=== PATIENT | male | born 1945 | race African-American/Black ===

== ENCOUNTER 2025-04-03 12:23 | Inpatient (IN) | payer OTHER ==
[~2025-04-03] VITALS: Ht 180.3 cm; Wt 65.4 kg
[2025-04-03] MEDS: ACETAMINOPHEN 1000MG/100ML 100 ML IV ONE (13:36)
[2025-04-03] MEDS: SODIUM CHLORIDE 0.9% (SEPSIS BOLUS) IV ONE (13:37)
[2025-04-03] MEDS: PIPERACILLIN/TAZO 3.375G/50ML 50 ML IV ONE (13:58)
[2025-04-03 14:04] LABS: HEMATOCRIT. 36.1 % (42.0-52.0); HEMOGLOBIN. 12.2 g/dL (14.0-18.0); MEAN PLATELET VOLUME 8.1 fl (7.4-10.4); PLATELET 299 x1000/uL (130-400); RED BLOOD CELL COUNT 3.93 mill/uL (4.7-6.1); RED CELL DISTRIBUTION WIDTH 12.8 % (11.6-14.6)
[2025-04-03] MEDS: VANCOMYCIN 1G PREMIX 200 ML IV ONE (14:12)
[2025-04-03 14:18] LABS: INR 1.1
[2025-04-03 14:21] LABS: CREATININE 0.7 mg/dL (0.6-1.3); UREA NITROGEN BLOOD 32 mg/dL (9-23)
[2025-04-03 14:23] LABS: ASPARTATE AMINOTRANSFERASE 22 IU/L (<34); BILIRUBIN DIRECT 0.2 mg/dL (<=3.0); BILIRUBIN TOTAL 0.5 mg/dL (0.1-1.0); PROTEIN TOTAL 7.3 g/dL (6.0-8.3)
[2025-04-03 14:47] LABS: BAND% 12.0 % (1.0-6.0); LYMPHOCYTES % MANUAL 4.0 % (20.0-50.0); MONOCYTES % MANUAL 5.0 % (2.0-8.0); NEUTROPHILS % MANUAL 79.0 % (45.0-75.0); PLATELET ESTIMATE NORMAL
[2025-04-03 18:30] VITALS: BP 111/75; PULSE 108; RESP 20; TEMP 36.9; O2SAT 99
[2025-04-03] MEDS ORDERED: ACETAMINOPHEN 325MG TABLET PO PRN ×2 (19:15)
[2025-04-03] MEDS ORDERED: ONDANSETRON HCL 4MG/2ML INJ IV PRN (19:15)
[2025-04-03] MEDS ORDERED: PIPERACILLIN/TAZOBACTAM 3.375 G in DEXTROSE 5% WATER 50 ML IV SCH (19:15)
[2025-04-03] MEDS ORDERED: GUAIFENESIN 200MG/10ML SUGAR FREE UDC PO PRN (19:15)
[2025-04-03] MEDS ORDERED: CLONIDINE 0.1MG TABLET PO PRN (19:15)
[2025-04-03] MEDS ORDERED: MAGNESIUM/ALUMINUM HYDROXIDE/SIMETHICONE 30ML UDC PO PRN (19:15)
[2025-04-03] MEDS ORDERED: DOCUSATE SODIUM 100MG CAPSULE PO PRN (19:15)
[2025-04-03] MEDS ORDERED: IPRATROPIUM/ALBUTEROL 0.5-3(2.5)MG/3ML NEB HHN PRN (19:15)
[2025-04-03 20:00] VITALS: BP 112/73; PULSE 106; RESP 19; TEMP 35.6; O2SAT 98
[2025-04-03 20:13] LABS: PHOSPHORUS 2.5 mg/dL (2.5-4.9)
[2025-04-03] MEDS: ENOXAPARIN 40MG/0.4ML SYR SUBCUT SCH (21:03)
[2025-04-03] MEDS: VANCOMYCIN 500MG/100ML IV SCH (22:26)
[2025-04-03] MEDS: PIPERACILLIN/TAZO 3.375G/50ML IV SCH (22:26)
[2025-04-03] MEDS: MVI, ADULT NO.1 10 ML, FOLIC ACID 1 MG, THIAMINE HCL 100 MG in SODIUM CHLORIDE 0.9% 1,0... IV ONE (22:27)
[2025-04-03] MEDS: METOPROLOL TARTRATE 25MG TABLET PO SCH (22:28)
[2025-04-03 23:38] VITALS: BP 111/75; PULSE 108; RESP 20; TEMP 36.696
[2025-04-04] VITALS: BP 114/69; PULSE 63; RESP 19; TEMP 37.1; O2SAT 96
[2025-04-04 00:55] LABS: TROPONIN I HIGH SENSITIVITY 85 ng/L (3.0-53)
[2025-04-04 04:00] VITALS: BP 121/62; PULSE 104; RESP 19; TEMP 37.1; O2SAT 98
[2025-04-04 08:09] LABS: HEMATOCRIT. 35.3 % (42.0-52.0); HEMOGLOBIN. 11.7 g/dL (14.0-18.0); MEAN PLATELET VOLUME 8.4 fl (7.4-10.4); PLATELET 292 x1000/uL (130-400); RED BLOOD CELL COUNT 3.85 mill/uL (4.7-6.1); RED CELL DISTRIBUTION WIDTH 13.0 % (11.6-14.6)
[2025-04-04 08:22] LABS: LDL CHOLESTEROL 65.0 mg/dL (5-100); TRIGLYCERIDE 109.0 mg/dL (0-150)
[2025-04-04 08:29] LABS: TROPONIN I HIGH SENSITIVITY 108 ng/L (3.0-53)
[2025-04-04 08:47] VITALS: BP 104/55; PULSE 116; RESP 18; TEMP 36.6; O2SAT 98
[2025-04-04 09:04] LABS: HEPATITIS C AB NON REACTIVE (Neg) (Negative)
[2025-04-04] MEDS: VANCOMYCIN 750MG PMX (XELLIA) 150 ML IV SCH (09:13)
[2025-04-04] MEDS: LORAZEPAM 1MG TABLET PO PRN (09:14)
[2025-04-04] MEDS: MAGNESIUM 2 G PREMIX 50 ML IV NR (10:04)
[2025-04-04 11:06] LABS: BAND% 14.0 % (1.0-6.0); LYMPHOCYTES % MANUAL 6.0 % (20.0-50.0); MONOCYTES % MANUAL 6.0 % (2.0-8.0); NEUTROPHILS % MANUAL 74.0 % (45.0-75.0); PLATELET ESTIMATE NORMAL
[2025-04-04] MEDS ORDERED: SODIUM CHLORIDE 0.9% 500 ML IV ONE (11:45)
[2025-04-04 12:04] LABS: CLARITY URINE CLOUDY (CLEAR); COLOR URINE DARK YELLOW (YELLOW); GLUCOSE URINE NEGATIVE (NEGATIVE); KETONES URINE 1+ (NEGATIVE); LEUKOCYTE ESTERASE URINE 2+ (NEGATIVE); NITRITE URINE POSITIVE (NEGATIVE); OCCULT BLOOD URINE 3+ (NEGATIVE); PH URINE 5.5 (4.5-8.0); PROTEIN URINE 1+ (NEGATIVE); SPECIFIC GRAVITY URINE 1.024 (1.005-1.030); UROBILINOGEN URINE 1.0 E.U./dL (0.2-1.0)
[2025-04-04] MEDS: SODIUM CHLORIDE 0.9% 1,000 ML IV SCH (12:11)
[2025-04-04 12:20] LABS: SQUAMOUS EPITHELIAL CELL URINE RARE /lpf (RARE/1+)
[2025-04-04 12:22] LABS: BACTERIA URINE 1+
[2025-04-04 12:23] LABS: RBC URINE 25-50 /hpf (0-2)
[2025-04-04 12:38] VITALS: BP 96/52; PULSE 79; RESP 18; TEMP 37.1; O2SAT 95
[2025-04-04 15:59] VITALS: BP 99/53; PULSE 61; TEMP 97.8; O2SAT 98
[2025-04-04 16:52] VITALS: BP 99/53; PULSE 61; RESP 18; TEMP 36.6; O2SAT 96
[2025-04-05] MEDS ORDERED: MULTIVITAMINS,THER W-MINERALS TABLET PO SCH (09:00)
[2025-04-05] MEDS ORDERED: THIAMINE HCL 100MG TABLET PO SCH (09:00)
[2025-04-05] MEDS ORDERED: FOLIC ACID 1MG TABLET PO SCH (09:00)
== END 2025-04-04 18:30 | disposition short-term general hospital (02) | DRG 872 ==
LOC: ER 12:23 → EDBEDREQTM 17:13 → EDBEDREQ 17:13 → ENRESERV 17:48 → 7WST 18:00
PROVIDERS: ADMIT Internal Medicine; ATTEND Internal Medicine
DX: A41.59 Other Gram-negative sepsis (principal); I48.92 Unspecified atrial flutter; F20.0 Paranoid schizophrenia; N39.0 Urinary tract infection, site not specified; M47.817 Spondylosis without myelopathy or radiculopathy, lumbosacral region; R79.1 Abnormal coagulation profile; Z91.81 History of falling; Z74.01 Bed confinement status
CPT/HCPCS: 36415; 71045; 72100; 80048; 80061; 80076; 81003; 82550; 82962; 83605; 83735; 84100; 84145; 84153; 84443; 84484; 85025; 86705; 87077; 87186; 87340; 93005; 93970; 97166; 99291; A4606; J1650; J2543; J3373; J3411; J3475; J3490; J7030; J0131